=== PATIENT | female | born 1975 | race African-American/Black ===

== ENCOUNTER → 2019-05-01 | Outpatient (CLI) | payer BC, OTHER ==
[~2019-05-01] MED LIST: CLARITIN10 M3 PO; DICLOFENAC SODI75 MG PO; FLONASE 0.05%50 MCG NARES
== END ==
LOC: SJCVCIMAG 08:45
DX: Z01.810 Encounter for preprocedural cardiovascular examination (principal); R00.0 Tachycardia, unspecified; E78.5 Hyperlipidemia, unspecified; E66.9 Obesity, unspecified

== ENCOUNTER 2019-08-02 12:31 | Day surgery (SDC) | payer BC, OTHER ==
[~2019-08-02] VITALS: Ht 170.2 cm; Wt 127.0 kg
--- NOTE | ~2019-08-02 | O ---
[place] [address] OPERATIVE REPORT Name: MECCA BHAGAT Room #: 150-6 [facility]..#: [id number] Admission: 08/02/19 Attend Phys: Adis Pedersen MD Discharge: Date of : 73 Report #: [id number] THIS REPORT FOR: cc: Flor Rae MD,Flor Pedersen,Adis Allen MD ~ CC: Adis Rae DATE OF SERVICE: 08/02/2019 PREOPERATIVE DIAGNOSIS: Left knee medial meniscus tear. POSTOPERATIVE DIAGNOSES: 1. Left knee complex tear of the body and posterior horn of the medial meniscus. 2. Pathologic medial plica. 3. Grade 3 chondromalacia medial femoral condyle. 4. 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 PROCEDURES: 1. Left knee arthroscopy with partial medial meniscectomy. 2. Medial plica excision. 3. Chondroplasty of the medial femoral condyle and trochlear groove. SURGEON: Adis Pedersen MD BEHAVIORAL INTERVENTIONIST: Sahra Mcgee PA-C. ANESTHESIA: LMA. TOURNIQUET TIME: 60 minutes. ESTIMATED BLOOD LOSS: 5 mL. COMPLICATIONS: None. SPECIMENS: None. CONDITION UPON LEAVING THE OPERATING ROOM: Stable. INDICATIONS FOR PROCEDURE: The patient is a 44-year-old female who has had medial-sided left knee pain. She had an MRI scan showing to have a tear of her medial meniscus as well as chondromalacia and after discussion with her, she elected for left knee arthroscopy with partial medial meniscectomy and debridement as needed. [address] [address] OPERATIVE REPORT Name: MECCA BHAGAT Room #: 150-6 [facility]..#: [id number] Admission: 08/02/19 Attend Phys: Adis Pedersen MD Discharge: Date of : 73 Report #: [id number] DESCRIPTION OF PROCEDURE: Risks, benefits, alternatives, complications were discussed in detail with the patient including but not limited to risk of anesthesia, risk of damage to nerves, arteries, blood vessels, risk for infection, bleeding, risk for continued knee pain, need for reoperation. Informed consent was obtained from the patient. Left knee was appropriately marked in the preoperative holding area. IV Ancef was given for preoperative antibiotics. She was brought to the operating room and placed in supine position on operating room table. LMA anesthesia was induced without complication. Tourniquet was placed on the left thigh. Left lower extremity was prepped and draped in normal sterile fashion. Timeout was performed properly identifying the patient and procedure as well as the instrumentation. All in the operating room were in agreement. Left lower extremity was exsanguinated, tourniquet was inflated. Tourniquet time was 60 minutes. Standard anterolateral portal was established with #11 blade through the skin. Arthroscope was introduced into the patellofemoral compartment, diagnostic arthroscopy was undertaken. Patellofemoral compartment was visualized and found to have grade 4 chondromalacia of the trochlear groove. Medial gutter was visualized and found to have a thickened pathologic medial plica. Medial compartment was visualized and medial portal was established under arthroscopic visualization. Probe was introduced into the medial compartment and there was noted to be a complex tear of the body extending into the posterior horn of medial meniscus. This was trimmed back to a stable rim with arthroscopic shaver. In addition, there was noted to be grade 3 chondromalacia of the medial femoral condyle and chondroplasty of this area was performed. Scope was then placed in the notch and found to have an intact anterior cruciate ligament. Lateral compartment was visualized and found to have an intact lateral meniscus. Arthroscope was placed in the patellofemoral compartment and the medial plica was excised with oscillating shaver and chondroplasty of the trochlear groove was performed. After this, all fluid was allowed to drain from the knee. Knee was injected with 10 mL of 0.5% Marcaine. Incision was closed with 3-0 nylon. Soft dressing of Adaptic, 4 x 4, Webril, Eduar wrap were applied. The patient tolerated this procedure well and went to recovery room under care of anesthesia postoperatively. By: [id number] Adis Pedersen MD /natalie
[~2019-08-02 12:31] MED LIST changes: +ATORVASTATIN CA20 MG PO; +METFORMIN HCL500 MG PO; +MULTI VITAMIN1 EACH PO
[2019-08-02 13:43] VITALS: BP 141/89
[2019-08-02] MEDS ORDERED: NORCO 5-325 TA1 EAC1 PO (15:09)
[2019-08-02 15:26] VITALS: BP 141/89
== END 2019-08-02 16:25 | disposition home or self-care (01) ==
LOC: TBA 12:31 → OR 12:31 → TBA 16:25 → OR 16:25
DX: S83.232A Complex tear of medial meniscus, current injury, left knee, initial encounter (principal); M94.262 Chondromalacia, left knee; M67.52 Plica syndrome, left knee; M17.12 Unilateral primary osteoarthritis, left knee; E11.9 Type 2 diabetes mellitus without complications; M19.90 Unspecified osteoarthritis, unspecified site; Z98.890 Other specified postprocedural states; Z79.899 Other long term (current) drug therapy; Z98.51 Tubal ligation status; X58.XXXA Exposure to other specified factors, initial encounter; Y93.89 Activity, other specified; Y92.89 Other specified places as the place of occurrence of the external cause; Y99.8 Other external cause status
CPT/HCPCS: 50010; 50101; 50405; 51038; 54170; 56526; 57103; 57181; 62110; 62900; 70005